=== PATIENT | female | born 1995 | race Caucasian/White ===

== ENCOUNTER → 2020-06-07 | Outpatient (CLI) | payer MEDICAID ==
--- NOTE | 2020-06-07 14:53 | Diagnostic Imaging Report ---
INDICATION: anatomical assessment during normal . TECHNIQUE: Multiple real-time grayscale images were obtained over the gravid uterus. COMPARISON: None. FINDINGS: There is presence of a single viable intrauterine . Normal amount of amniotic fluid. Placenta is posterior and somewhat low lying but without previa. The placenta to the os is approximately 2.36 cm. Cervical length at 3.1 cm. Visualized anatomical structures including kidneys, bladder, stomach, intracranial structures, four-chamber heart, three-vessel cord, and cord insertion site as well as spine are unremarkable as visualized. Maternal adnexa is not visualized. Biometrical measurements are as follows: Biparietal 4.64 cm, age 20 weeks 1 days. Head circumference 18.08 cm, age 20 weeks 4 days. Abdominal circumference 14.51 cm, age 19 weeks 6 days. Femur length 3.25 cm, age 20 weeks 1 days. Sonographic estimate age: 20 weeks 2 days. Sonographic estimated date of delivery: 10/23/2020. Estimated Weight: 327 gm (+/- 48 gm). LMP percentile: 25%. heart rate: 144 beats per minute. number: 1 of 1. IMPRESSION: 1. Single viable intrauterine with a sonographic estimated age at 20 weeks 2 days for an estimated date of delivery of October 23, 2020. No abnormality is suggested at this time. Dictated by: Dictated on workstation # [id number]
== END ==
LOC: RAD 11:40
PROVIDERS: ATTEND Obstetrics & Gynecology
DX: Z34.92 Encounter for supervision of normal pregnancy, unspecified, second trimester (principal); Z3A.20 20 weeks gestation of pregnancy
CPT/HCPCS: 76805

== ENCOUNTER 2020-10-15 11:10 | Inpatient (IN) | payer MEDICAID ==
[2020-10-15] VITALS (57 sets, daily range): BP systolic 99–162; BP diastolic 56–104
[~2020-10-15] VITALS: Ht 170.2 cm; Wt 73.8 kg
[2020-10-15] MEDS ORDERED: OXYTOCIN PRE-MIX DRIP 500 ML IV ONE (11:56)
[2020-10-15] MEDS ORDERED: D5 LR IV SOLUTION 1,000 ML IV ONE (11:56)
[2020-10-15] MEDS ORDERED: AMPICILLIN FOR IV USE 2,000 MG in WATER (STERILE) FOR INJECTION 14.8 ML IV SCH (12:07)
[2020-10-15] MEDS ORDERED: OXYTOCIN PRE-MIX DRIP 500 ML IV SCH (12:15)
[2020-10-15] MEDS: D5 LR IV SOLUTION 1,000 ML IV SCH ×2 (12:20→20:59)
--- NOTE | 2020-10-15 12:41 | History & Physical-OB ---
OB - Chief Complaint & HPI Date/Time Date of Admission: Date of Admission: Oct 15, 2020 at 11:10 Date seen by a Provider: Oct 15, 2020 Time Seen by a Provider: 10:30 Chief Complaint/History OB-Reason for Admission/Chief: Onset of Labor Hx : 1 Hx Para: 0 Expected Date of Delivery: Oct 22, 2020 Gestational Age in Weeks: 39 Gestational Age in Days: 0 Admission Nurse Assessment Rev: Yes History of Labs O neg Antibody neg RI RPR NR HBsAg NR HIV NR GC neg GBS pos Allergies and Home Medications Allergies Coded Allergies: Sulfa (Sulfonamide Antibiotics) (Verified Allergy, Intermediate, RASH, 10/15/20) Patient Home Medication List Home Medication List Reviewed: Yes OB - History Hx of Present Care: Yes Ultrasounds: Normal mid trimester US Obstetrical Complications: None Medical Complications: None Patient Past Medical History n/a OB - Admission Exam Physical Exam HEENT: NCAT Heart: Rhythm Normal Lungs: Clear Abdomen: Gravid Extremities: Normal Reflexes: Normal Cervical Dilatation: 2cm Effacement: 75% Station: -1 Membranes: Intact Heart Rate: 130's Accelerations: Accelerations Present Decelerations: No Decelerations Short Term Variability: Present Fpc Variability: Average (6-25) Contractions on Admission: 6-10 Minutes Apart Intensity: Firm Labs Laboratory Tests Test 10/15/20 12:00 10/15/20 12:11 Range/Units OB - Assessment/Plan/Diagnosis Assessment Assessment: active labor Admission Dx 25 yo @ 39 weeks Active labor GBS pos Admission Status: Inpatient Order (span 2 midnights) Reason for Inpatient Admission: 39 week active labor at term Plan Plan: Expectant Management Other Plan Ampicillin started, will follow with AROM once timing of dose completed. MAYUR CONTEH DO Oct 15, 2020 12:41
[2020-10-15 12:42] LABS: BASOPHILS % (AUTO) 0 % (0-10); EOSINOPHILS # (AUTO) 0.1 10^3/uL (0.0-0.3); EOSINOPHILS % (AUTO) 0 % (0-10); HEMATOCRIT 37 % (35-52); HEMOGLOBIN 12.3 g/dL (11.5-16.0); LYMPHOCYTES # (AUTO) 1.6 10^3/uL (1.0-4.0); LYMPHOCYTES % (AUTO) 12 % (12-44); MEAN CORPUSCULAR HEMOGLOBIN 30 pg (25-34); MEAN CORPUSCULAR HGB CONC 34 g/dL (32-36); MEAN CORPUSCULAR VOLUME 90 fL (80-99); MEAN PLATELET VOLUME 12.1 fL (9.0-12.2); MONOCYTES # (AUTO) 0.6 10^3/uL (0.0-1.0); MONOCYTES % (AUTO) 4 % (0-12); NEUTROPHILS # (AUTO) 11.4 10^3/uL (1.8-7.8); NEUTROPHILS % (AUTO) 82 % (42-75); PLATELET COUNT 210 10^3/uL (130-400); WHITE BLOOD COUNT 13.9 10^3/uL (4.3-11.0)
[2020-10-15 12:42] LABS: BILIRUBIN,URINE NEGATIVE (NEGATIVE); CLARITY,URINE CLEAR; COLOR,URINE YELLOW; GLUCOSE, URINE (UA) NEGATIVE (NEGATIVE); KETONES,URINE NEGATIVE (NEGATIVE); LEUKOCYTE ESTERASE ,URINE 2+ (NEGATIVE); NITRITE,URINE NEGATIVE (NEGATIVE); PROTEIN,URINE NEGATIVE (NEGATIVE)
[2020-10-15 12:55] LABS: BACTERIA,URINE FEW /HPF; RBC,URINE 0-2 /HPF; SQUAMOUS EPITHELIAL CELL,UR 25-50 /HPF; WBC,URINE 50-100 /HPF
[2020-10-15] MEDS ORDERED: fentaNYL 2 mcg/ml BUPIVA 0.125 100 ML ONE (13:02)
[2020-10-15] MEDS ORDERED: BUPIVACAINE 0.25% 30 ML (SENSORCAINE) VIAL ONE (13:27)
[2020-10-15] MEDS ORDERED: fentaNYL INJECTION 100 MCG/2 ML AMP ONE ×2 (13:28→17:03)
[2020-10-15] MEDS: EPIDURAL (fentaNYL 2 MCG/ML BUPIVA 0.125%)100 ML BAG EPI PRN ×2 (13:30→19:57)
[2020-10-15] MEDS ORDERED: NALOXONE 0.4 MG/ML 1 ML (NARCAN) VIAL IV PRN ×2 (14:00)
[2020-10-15] MEDS ORDERED: CATHETER FLUSH 10 ML SYR IV SCH (14:00)
[2020-10-15] MEDS ORDERED: METOCLOPRAMIDE INJ 10 MG/2 ML (REGLAN) IV PRN (14:00)
[2020-10-15] MEDS ORDERED: ONDANSETRON 4 MG/2 ML (SDV) Z0FRAN IV PRN (14:00)
[2020-10-15] MEDS ORDERED: LACTATED RINGERS 1,000 ML IV SCH (14:00)
[2020-10-15] MEDS ORDERED: diphenhydrAMINE 50 MG/ML INJ (BENADRYL) IV PRN (14:00)
[2020-10-15] MEDS ORDERED: LIDOCAINE PF 2% 5 ML (XYLOCAINE) VIAL ONE (16:05)
[2020-10-15] MEDS: AMPICILLIN FOR IV USE 1,000 MG in WATER (STERILE) FOR INJECTION 7.4 ML IV SCH ×2 (16:28→20:18)
[2020-10-16] VITALS (42 sets, daily range): BP systolic 103–137; BP diastolic 55–95
[2020-10-16] MEDS: AMPICILLIN FOR IV USE 1,000 MG in WATER (STERILE) FOR INJECTION 7.4 ML IV SCH ×2 (00:21→04:31)
[2020-10-16] MEDS: EPIDURAL (fentaNYL 2 MCG/ML BUPIVA 0.125%)100 ML BAG EPI PRN (02:41)
[2020-10-16] MEDS ORDERED: LIDOCAINE/EPI 2% 1:200,00 (XYLOCAINE) 10 ML VIAL ONE (05:35)
--- NOTE | 2020-10-16 07:07 | OB Labor & Delivery Record ---
L&D History Date of Service Date of Service: Oct 16, 2020 History Expected Date of Delivery: Oct 22, 2020 Gestational Age in Weeks: 39 Hx : 1 Hx Para: 0 Complications Events: Routine care Operative Indications (Cesarea: N/A-Vaginal Delivery Intrapartal Events: None L&D Stage1 Stage One Onset of Labor - Date: Oct 16, 2020 Monitors and Tracing Monitor Mode: External Heart Rate: 125 Monitor Accelerations: Uniform Monitor Decelerations: None Station: 0 Prison Variability: Average (6-10) Short Term Variability: Present Presentation: Vertex Vital Signs VS - Last 72 Hours, by Label 10/15/20 10/15/20 10/15/20 10/15/20 11:30 13:00 13:15 13:20 Temp 37.5 Pulse 92 93 106 92 Resp 18 18 18 18 B/P (MAP) 130/87 (101) 131/83 (99) 135/85 (102) 129/85 (100) Pulse Ox 97 100 99 O2 Delivery Room Air Room Air Room Air Room Air 10/15/20 10/15/20 10/15/20 10/15/20 13:25 13:30 13:35 13:40 Pulse 92 77 92 96 Resp 18 18 18 18 B/P (MAP) 156/104 (121) 134/77 (96) 127/75 (92) 129/80 (96) Pulse Ox 99 98 99 99 O2 Delivery Room Air Room Air Room Air Room Air 10/15/20 10/15/20 10/15/20 10/15/20 13:45 13:50 14:00 14:15 Pulse 89 83 88 84 Resp 18 18 18 18 B/P (MAP) 127/77 (94) 126/93 (104) 123/84 (97) 119/81 (94) Pulse Ox 98 96 98 90 O2 Delivery Room Air Room Air Room Air Room Air 10/15/20 10/15/20 10/15/20 10/15/20 14:30 14:45 15:00 15:15 Pulse 90 90 81 89 Resp 18 18 18 18 B/P (MAP) 116/74 (88) 116/74 (88) 128/85 (99) Pulse Ox 97 97 100 96 O2 Delivery Room Air Room Air Room Air Room Air 3/2/21 10/15/20 10/15/20 10/15/20 15:30 15:45 16:00 16:15 Pulse 76 81 92 81 Resp 18 18 18 18 B/P (MAP) 124/80 (95) 119/80 (93) 126/86 (99) 131/81 (98) Pulse Ox 98 98 99 99 O2 Delivery Room Air Room Air Room Air Room Air 10/15/20 10/15/20 10/15/20 10/15/20 16:30 16:45 17:00 17:05 Temp 37.8 Pulse 83 88 92 118 Resp 18 18 18 18 B/P (MAP) 130/84 (99) 133/84 (100) 154/92 (112) 162/92 (115) Pulse Ox 98 89 99 99 O2 Delivery Room Air Room Air Room Air Room Air 10/15/20 10/15/20 10/15/20 10/15/20 17:10 17:15 17:20 17:25 Pulse 114 120 120 90 Resp 18 18 18 18 B/P (MAP) 145/89 (107) 144/93 (110) 144/93 (110) 128/90 (103) Pulse Ox 99 98 98 100 O2 Delivery Room Air Room Air Room Air Room Air 10/15/20 10/15/20 10/15/20 10/15/20 17:30 17:35 17:40 17:45 Pulse 107 96 99 92 Resp 18 18 18 18 B/P (MAP) 120/81 (94) 126/77 (93) 135/82 (99) 136/76 (96) Pulse Ox 98 100 100 99 O2 Delivery Room Air Room Air Room Air Room Air 10/15/20 10/15/20 10/15/20 10/15/20 17:50 17:55 18:00 18:11 Temp 37.5 Pulse 86 82 96 92 Resp 18 18 18 18 B/P (MAP) 125/77 (93) 127/78 (94) Pulse Ox 99 100 92 97 O2 Delivery Room Air Room Air Room Air Room Air 10/15/20 10/15/20 10/15/20 10/15/20 18:15 18:30 18:45 19:00 Pulse 87 83 97 102 Resp 18 18 18 18 B/P (MAP) 136/85 (102) 127/73 (91) 135/82 (99) 137/72 (93) Pulse Ox 99 100 98 100 O2 Delivery Room Air Room Air Room Air Room Air 10/15/20 10/15/20 10/15/20 10/15/20 19:15 19:30 19:45 20:00 Temp 37.3 37.5 Pulse 88 87 94 86 Resp 18 18 18 18 B/P (MAP) 131/79 (96) 138/65 (89) 119/67 (84) 128/80 (96) Pulse Ox 99 99 98 98 O2 Delivery Room Air Room Air Room Air Room Air 10/15/20 10/15/20 10/15/20 10/15/20 20:15 20:30 20:45 21:00 Pulse 77 83 76 96 Resp 18 18 18 18 B/P (MAP) 117/72 (87) 111/69 (83) 119/67 (84) 100/56 (71) Pulse Ox 98 O2 Delivery Room Air Room Air Room Air Room Air 10/15/20 10/15/20 10/15/20 10/15/20 21:15 21:30 21:45 22:00 Temp 37.3 Pulse 86 86 91 93 Resp 18 18 18 18 B/P (MAP) 100/56 (71) 101/58 (72) 99/57 (71) 121/76 (91) O2 Delivery Room Air Room Air Room Air Room Air 10/15/20 10/15/20 10/15/20 10/15/20 22:15 22:30 22:45 23:00 Pulse 88 97 78 93 Resp 18 18 18 18 B/P (MAP) 113/70 (84) 112/69 (83) 113/65 (81) 119/61 (80) O2 Delivery Room Air Room Air Room Air Room Air 10/15/20 10/15/20 10/15/20 10/16/20 23:15 23:30 23:45 00:00 Temp 37.3 Pulse 78 77 94 80 Resp 18 18 18 18 B/P (MAP) 111/63 (79) 110/63 (79) 112/67 (82) 117/75 (89) O2 Delivery Room Air Room Air Room Air Room Air 10/16/20 10/16/20 10/16/20 10/16/20 00:15 00:30 00:45 01:00 Pulse 82 77 76 75 Resp 18 18 18 18 B/P (MAP) 121/66 (84) 119/71 (87) 113/68 (83) 114/66 (82) O2 Delivery Room Air Room Air Room Air Room Air 10/16/20 10/16/20 10/16/20 10/16/20 01:15 01:30 01:45 02:00 Pulse 72 81 78 72 Resp 18 18 18 18 B/P (MAP) 116/66 (83) 117/70 (86) 119/62 (81) 109/58 (75) O2 Delivery Room Air Room Air Room Air Room Air 10/16/20 10/16/20 10/16/20 10/16/20 02:15 02:30 02:45 03:00 Pulse 76 81 74 81 Resp 18 18 18 18 B/P (MAP) 105/55 (72) 106/58 (74) 110/58 (75) 108/57 (74) O2 Delivery Room Air Room Air Room Air Room Air 10/16/20 10/16/20 10/16/20 10/16/20 03:15 03:30 03:45 04:00 Pulse 83 77 70 80 Resp 18 18 18 18 B/P (MAP) 114/64 (81) 111/66 (81) 110/62 (78) 113/64 (80) O2 Delivery Room Air Room Air Room Air Room Air 10/16/20 10/16/20 10/16/20 10/16/20 04:15 04:30 04:45 05:00 Temp 36.4 Pulse 78 74 77 78 Resp 18 18 18 18 B/P (MAP) 109/66 (80) 110/62 (78) 115/72 (86) 118/76 (90) O2 Delivery Room Air Room Air Room Air Room Air 10/16/20 10/16/20 05:15 05:30 Pulse 78 100 Resp 18 18 B/P (MAP) 119/76 (90) 123/85 (98) O2 Delivery Room Air Room Air Rupture of Membranes Spontaneous Ruture of Membrane: No Amniotic Membrane Rupture Time: 171 Amniotic Membrane Fluid Desc.: Clear Vaginal Bleeding Description: Normal Show Induction/Anesthesia Epidural Cath Placement - Time: 170 Progress/Notes Patient admitted in early active labor, after GBS prophylaxis given, AROM performed and epidural placed. She progressed to complete and 0 station with pitocin augmentation. L&D Stage2 Stage Two Stage II Date: Oct 16, 2020 Monitors and Tracing Monitor Mode: External Heart Rate: 125 Position: Right Occiput Anterior Presentation: Vertex Cord Descript/Complications Cord Vessel Description: 3 Vessels Delivery Type Infant Delivery Method: Spontaneous Vaginal Anterior Shoulder: Left Episiotomy/Perineal Laceration Laceraction(s)/Extensions: Yes Episiotomy Description: Right Mediolateral Degree (describe repair) RML repaired using 3-0 and 2-0 vicryl suture in usual fashion. Condition of Delivery Notes Live female weight 7 lbs 8 oz, APGARS pending Condition of Infant Condition of Infant: Living Exam: No Observed Abnormalities Resuscitation Resuscitation: Oxygen Blowby L&D Stage3 Pictocin Pitocin Administration mu/min: 18 Pitocin ml/hr: 18 Pitocin Administration Comment: pitocin increased wide open after delivery of placenta Placenta Delivery Placenta Delivery: Spontaneous Delivery Summary Summary Estimated blood loss (mL): 350 Attending at delivery: Mayur Conteh DO Condition of Delivery Examined: Cervix Examined, Uterus Explored Post Hemorrhage: No Condition of Mother stable Condition of (s) stable MAYUR CONTEH DO Oct 16, 2020 07:07
--- NOTE | 2020-10-16 07:10 | Discharge Inst-Women's Service ---
Discharge Inst-Women's Serv Depart Medication/Instructions New, Converted or Re-Newed RX: RX on Chart Final Diagnosis PPD 1 NVD Problems Reviewed?: Yes Consults/Follow Up Additional Follow Up: Yes Orders/Referrals Dr. Conteh in 6 weeks Activity Activity: Activity as Tolerated Driving Instructions: No Driving for 1 Week NO SMOKING: NO SMOKING Nothing Inside Vagina: No Douching, No [place], No Tampons Diet Discharge Diet: No Restrictions Symptoms to Report to : Bleeding Excessive, Pain Increased, Fever Over 101 Degrees F, Vaginal Bleeding Increase, Questions/Concerns For Any Problems or Questions: Contact Your Physician MAYUR CONTEH DO Oct 16, 2020 07:10
[2020-10-16] MEDS ORDERED: IBUP-844 PO (07:12)
[2020-10-16] MEDS ORDERED: ACHD5005 PO (07:12)
[2020-10-16] MEDS ORDERED: DIBU30OI TOP (07:12)
[2020-10-16] MEDS ORDERED: PNV1TABL67 PO (07:12)
[2020-10-16] MEDS ORDERED: DCS100C PO (07:12)
[2020-10-16] MEDS ORDERED: FERR325T18 PO (07:12)
[2020-10-16] MEDS ORDERED: BENZ78AE5 TP (07:12)
[2020-10-16] MEDS ORDERED: OXYTOCIN PRE-MIX DRIP 500 ML IV SCH (07:15)
[2020-10-16] MEDS ORDERED: TETANUS,DIPTH,PERTUSS P/F (BOOSTRIX) 0.5 ML VIAL IM ONE (07:15)
[2020-10-16] MEDS ORDERED: HYDROcodone/APAP 5 MG/325 MG (LORTAB) TAB PO PRN (07:15)
[2020-10-16] MEDS ORDERED: DIBUCAINE (NUPERCAINAL) 1% OINT 30 GM TOP PRN (07:15)
[2020-10-16] MEDS ORDERED: MEASLES,MUMPS,RUBELLA 1 EA INJ SQ ONE (07:15)
[2020-10-16] MEDS: IBUPROFEN 600 MG (MOTRIN) TAB PO SCH ×3 (10:13→23:44)
[2020-10-16] MEDS: BENZOCAINE/MENTHOL (DERMOPLAST) 60 ML CAN TP PRN (10:14)
[2020-10-16] MEDS: WITCH HAZEL(TUCKS) 40 EA JAR TOP PRN (10:14)
[2020-10-16] MEDS ORDERED: CATHETER FLUSH 10 ML SYR IV SCH (14:00)
[2020-10-16] MEDS: FERROUS SULF 325 MG (IRON) TAB PO SCH (17:36)
[2020-10-16] MEDS: DOCUSATE SODIUM 100 MG (COLACE) CAP PO SCH ×2 (17:36→19:37)
[2020-10-17 05:34] VITALS: BP 120/69
[2020-10-17] MEDS: IBUPROFEN 600 MG (MOTRIN) TAB PO SCH ×2 (05:34→12:07)
[2020-10-17 06:52] LABS: BASOPHILS # (AUTO) 0.1 10^3/uL (0.0-0.1); BASOPHILS % (AUTO) 0 % (0-10); EOSINOPHILS # (AUTO) 0.2 10^3/uL (0.0-0.3); EOSINOPHILS % (AUTO) 1 % (0-10); HEMATOCRIT 33 % (35-52); HEMOGLOBIN 11.2 g/dL (11.5-16.0); LYMPHOCYTES # (AUTO) 2.8 10^3/uL (1.0-4.0); LYMPHOCYTES % (AUTO) 15 % (12-44); MEAN CORPUSCULAR HEMOGLOBIN 31 pg (25-34); MEAN CORPUSCULAR HGB CONC 34 g/dL (32-36); MEAN CORPUSCULAR VOLUME 90 fL (80-99); MEAN PLATELET VOLUME 12.1 fL (9.0-12.2); MONOCYTES # (AUTO) 0.8 10^3/uL (0.0-1.0); MONOCYTES % (AUTO) 4 % (0-12); NEUTROPHILS # (AUTO) 14.3 10^3/uL (1.8-7.8); NEUTROPHILS % (AUTO) 78 % (42-75); PLATELET COUNT 203 10^3/uL (130-400); WHITE BLOOD COUNT 18.3 10^3/uL (4.3-11.0)
[2020-10-17] MEDS ORDERED: PRENATAL VITAMIN 1 EA TAB PO SCH (07:00)
--- NOTE | 2020-10-17 07:25 | Postpartum Progress Note ---
Note Note Day # 1 Subjective: Patient is without complaints. Ambulating, voiding. Tolerating a regular diet without nausea or vomiting. Normal lochia. Pain is well controlled with oral pain medications. Objective: Physical Exam: General - Alert and oriented, no apparent distress Abdomen - Soft, appropriately tender to palpation, non-distended, fundus firm at umbilicus Extremities - no edema, negative Max's bilaterally Assessment: PPD 1 NVD Acute blood loss anemia Plan: Routine care. Encourage breast feeding. Encourage ambulation. Ferrous sulfate supplementation. Plan for discharge today Vitals - Labs Vital Signs - I&O Vital Signs Date Time Temp Pulse Resp B/P (MAP) Pulse Ox O2 Delivery O2 Flow Rate FiO2 10/17/20 05:34 36.3 98 18 120/69 (86) 100 10/16/20 23:52 36.2 85 18 110/71 (84) 97 10/16/20 19:30 36.3 89 18 126/91 (103) 99 Room Air 10/16/20 17:00 36.6 88 18 119/78 (92) 97 Room Air 10/16/20 10:00 115 18 130/79 (96) Room Air 10/16/20 09:45 111 18 118/95 (103) Room Air 10/16/20 09:30 100 18 117/65 (82) Room Air 10/16/20 09:15 102 18 113/72 (86) Room Air 10/16/20 09:00 114 18 126/64 (84) Room Air 10/16/20 08:45 112 18 119/56 (77) Room Air 10/16/20 08:30 111 18 130/59 (82) Room Air 10/16/20 08:15 18 103/80 (88) Room Air 10/16/20 08:00 100 18 117/73 (88) Room Air 10/16/20 07:45 37.1 108 18 113/72 (86) Room Air 10/16/20 07:30 113 18 109/63 (78) Room Air Labs Laboratory Tests 10/17/20 06:17: White Blood Count 18.3H, Red Blood Count 3.66L, Hemoglobin 11.2L, Hematocrit 33L , Mean Corpuscular Volume 90, Mean Corpuscular Hemoglobin 31, Mean Corpuscular Hemoglobin Concent 34, Red Cell Distribution Width 13.5, Platelet Count 203, Mean Platelet Volume 12.1, Immature Granulocyte % (Auto) 1, Neutrophils (%) (Auto) 78H, Lymphocytes (%) (Auto) 15, Monocytes (%) (Auto) 4, Eosinophils (%) (Auto) 1, Basophils (%) (Auto) 0, Neutrophils # (Auto) 14.3H, Lymphocytes # (Auto) 2.8, Monocytes # (Auto) 0.8, Eosinophils # (Auto) 0.2, Basophils # (Auto) 0.1, Immature Granulocyte # (Auto) 0.1 Microbiology 10/15/20 Urine Culture - Final, Complete See Comments MAYUR CONTEH DO Oct 17, 2020 07:25
[2020-10-17] MEDS: FERROUS SULF 325 MG (IRON) TAB PO SCH (09:53)
[2020-10-17] MEDS: DOCUSATE SODIUM 100 MG (COLACE) CAP PO SCH (09:53)
[2020-10-17 09:55] VITALS: BP 129/87
[2020-10-17] MEDS: BENZOCAINE/MENTHOL (DERMOPLAST) 60 ML CAN TP PRN (10:01)
[2020-10-17] MEDS: WITCH HAZEL(TUCKS) 40 EA JAR TOP PRN (10:01)
== END 2020-10-17 12:55 | disposition home or self-care (01) | DRG 806 ==
LOC: LDRP 11:10
PROVIDERS: ADMIT Obstetrics & Gynecology; ATTEND Obstetrics & Gynecology
PROC: 10E0XZZ Delivery of Products of Conception, External Approach (ICD-10-PCS; principal; 2020-10-15)
PROC: 10907ZC Drainage of Amniotic Fluid, Therapeutic from Products of Conception, Via Natural or Artificial Opening (ICD-10-PCS; 2020-10-15)
PROC: 0W8NXZZ Division of Female Perineum, External Approach (ICD-10-PCS; 2020-10-15)
DX: O99.824 Streptococcus B carrier state complicating childbirth (principal); D62 Acute posthemorrhagic anemia; Z37.0 Single live birth; Z3A.39 39 weeks gestation of pregnancy; O90.81 Anemia of the puerperium; Z20.822 Contact with and (suspected) exposure to COVID-19
CPT/HCPCS: 36415; 81000; 83033; 85025; 86850; 86900; 86901; 87088; 87635

== ENCOUNTER 2021-02-25 05:35 | Outpatient (CLI) | payer MEDICAID ==
[~2021-02-25] VITALS: Ht 170.2 cm; Wt 65.0 kg
[~2021-02-25 05:35] MED LIST: ACHD5005 PO; BENZ78AE5 TP; DCS100C PO; DIBU30OI TOP; FERR325T18 PO; IBUP-844 PO; PNV1TABL67 PO
[2021-02-25] MEDS ORDERED: NORE1TAB95 PO (13:11)
== END 2021-02-25 13:21 | disposition home or self-care (01) ==
LOC: PREOP 05:35
PROVIDERS: ATTEND Obstetrics & Gynecology
DX: Z01.818 Encounter for other preprocedural examination (principal)

== ENCOUNTER 2021-03-03 10:03 | Day surgery (SDC) | payer MEDICAID ==
[2021-03-03] VITALS (11 sets, daily range): BP systolic 94–128; BP diastolic 60–85
[~2021-03-03] VITALS: Ht 170.2 cm; Wt 65.0 kg
[~2021-03-03 10:03] MED LIST changes: +NORE1TAB95 PO
[2021-03-03] MEDS ORDERED: LACTATED RINGERS 1,000 ML IV PRN (10:15)
[2021-03-03] MEDS ORDERED: BUPIVACAINE 0.25% 30 ML (SENSORCAINE) VIAL ONE (10:28)
[2021-03-03] MEDS ORDERED: KETOROLAC 30 MG/ML VIAL ONE (10:45)
[2021-03-03] MEDS ORDERED: proPOfol 200 MG/20 ML (DIPRIVAN) VIAL IV ONE (10:45)
[2021-03-03] MEDS ORDERED: MIDAZOLAM 2 MG/2 ML (VERSED) VIAL ONE (10:45)
[2021-03-03] MEDS ORDERED: fentaNYL INJ 100 MCG/2 ML AMP ONE (10:45)
[2021-03-03] MEDS ORDERED: LIDOCAINE PF 2% 5 ML (XYLOCAINE) VIAL ONE (10:45)
[2021-03-03] MEDS ORDERED: ONDANSETRON 4 MG/2 ML (SDV) Z0FRAN ONE (10:45)
[2021-03-03 10:46] LABS: BASOPHILS # (AUTO) 0.1 10^3/uL (0.0-0.1); BASOPHILS % (AUTO) 1 % (0-10); EOSINOPHILS # (AUTO) 0.2 10^3/uL (0.0-0.3); EOSINOPHILS % (AUTO) 2 % (0-10); HEMATOCRIT 41 % (35-52); HEMOGLOBIN 13.7 g/dL (11.5-16.0); LYMPHOCYTES # (AUTO) 1.5 10^3/uL (1.0-4.0); LYMPHOCYTES % (AUTO) 17 % (12-44); MEAN CORPUSCULAR HEMOGLOBIN 30 pg (25-34); MEAN CORPUSCULAR HGB CONC 34 g/dL (32-36); MEAN CORPUSCULAR VOLUME 89 fL (80-99); MEAN PLATELET VOLUME 10.8 fL (9.0-12.2); MONOCYTES # (AUTO) 0.4 10^3/uL (0.0-1.0); MONOCYTES % (AUTO) 5 % (0-12); NEUTROPHILS # (AUTO) 6.8 10^3/uL (1.8-7.8); NEUTROPHILS % (AUTO) 75 % (42-75); PLATELET COUNT 295 10^3/uL (130-400)
--- NOTE | 2021-03-03 11:41 | Progress Note-Pre Operative ---
Pre-Operative Progress Note H&P Reviewed The H&P was reviewed, patient examined and no changes noted. Date Seen by Provider: Mar 03, 2021 Time Seen by Provider: 11:00 Date H&P Reviewed: Mar 03, 2021 Time H&P Reviewed: 11:15 Pre-Operative Diagnosis: LIGIA 2 positive ectocervical margins MAYUR CONTEH DO Mar 03, 2021 11:41
[2021-03-03] MEDS ORDERED: IBUP-1773 PO (11:43)
[2021-03-03] MEDS ORDERED: ACHD5005 PO (11:43)
--- NOTE | 2021-03-03 11:43 | Discharge Inst-Women's Service ---
Discharge Inst-Women's Serv Depart Medication/Instructions New, Converted or Re-Newed RX: Transmitted to Pharmacy Problems Reviewed?: Yes Consults/Follow Up Additional Follow Up: Yes Orders/Referrals [address] Conteh Activity Activity: Activity as Tolerated Driving Instructions: You May Drive NO SMOKING: NO SMOKING Nothing Inside Vagina: No Douching, No [place], No Tampons Diet Discharge Diet: No Restrictions Symptoms to Report to : Bleeding Excessive, Pain Increased, Fever Over 101 Degrees F, Vaginal Bleeding Increase, Questions/Concerns For Any Problems or Questions: Contact Your Physician MAYUR CONTEH DO Mar 03, 2021 11:43
[2021-03-03] MEDS ORDERED: HYDROcodone/APAP 5 MG/325 MG (LORTAB) TAB PO PRN (11:45)
[2021-03-03] MEDS ORDERED: ONDANSETRON 4 MG/2 ML (SDV) Z0FRAN IVP PRN (11:45)
[2021-03-03] MEDS ORDERED: D5 LR IV SOLUTION 1,000 ML IV SCH (11:45)
[2021-03-03] MEDS ORDERED: KETOROLAC 30 MG/ML VIAL IVP ONE (11:45)
[2021-03-03] MEDS ORDERED: SEVOFLURANE (ULTANE) 15 ML INHAL SOLN ONE (12:05)
--- NOTE | 2021-03-03 12:18 | Anesthesia-General Post-Op ---
General Patient Condition Mental Status/LOC: Same as Preop Cardiovascular: Satisfactory Nausea/Vomiting: Absent Respiratory: Satisfactory Pain: Controlled Complications: Absent Post Op Complications Complications None Follow Up Care/Instructions Patient Instructions None needed. Anesthesia/Patient Condition Patient Condition Patient is doing well, no complaints, stable vital signs, no apparent adverse anesthesia problems. No complications reported per nursing. DELFIN CABRERA CRNA Mar 03, 2021 12:18
[2021-03-03] MEDS ORDERED: fentaNYL INJ 100 MCG/2 ML AMP IVP ONE (12:30)
[2021-03-03] MEDS ORDERED: morphine INJ 10 MG/ML 1ML (SYR OR VIAL) IVP ONE (12:30)
--- NOTE | 2021-03-03 19:06 | OPERATIVE REPORT ---
DATE OF SERVICE: PREOPERATIVE DIAGNOSES: A 25-year-old female with LIGIA 2 extending to the ectocervical margin on LEEP and conization. POSTOPERATIVE DIAGNOSES: A 25-year-old female with LIGIA 2 extending to the ectocervical margin on LEEP and conization. ROCEDURE PERFORMED: Cold knife conization. SURGEON: Mao Patel DO ANESTHESIA: LMA general. ESTIMATED BLOOD LOSS: 50 mL. URINE OUTPUT: 20 mL clear, drained at the start of the procedure. FLUIDS: 800 mL lactated Ringer's solution. FINDINGS: Cervix appears healing well from previous LEEP. Otherwise, normal-appearing external female genitalia. SPECIMEN SENT: Cold knife conization of the cervix. INDICATIONS FOR PROCEDURE: This 25-year-old female is a patient, who had undergone conization in the office using loop excisional electrocautery. 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 Therefore, I discussed with the patient repeating conization; however, doing this free hand and using a cold knife conization procedure. Risks of the procedure were discussed with the patient in detail and after all of her questions were answered, she was agreeable to proceed. Consent was obtained in the preoperative area and the patient was taken to the operating room. OPERATIVE REPORT IN DETAIL: Once in the operating room, anesthesia was found to be adequate. She was placed in the dorsal lithotomy position, was then prepped and draped in a normal sterile fashion. A timeout was performed. A weighted speculum was inserted into the patient's vagina. Right angle retractor was used to visualize the cervix, which was grasped at 12 o'clock position using a long Allis clamp. I then performed a paracervical block at 3 and 9 o'clock positions on the cervix. Care was taken to aspirate for injecting 5 mL of 0.25% Marcaine injected into each site after which two ligating sutures were placed at the 3 and 9 o'clock positions on the cervix using 0 Vicryl suture to control bleeding during the procedure. Once both these are in place, I then stained the cervix using Lugol's solution. There are some small areas of nonstaining around the transformation zone. I then used a freehand scalpel 11 blade to excise around these lesions laterally. Care was taken to take more ectocervix and superficial cervix than deep or endocervical tissue due to the pathology of the margins. After this conization was taken, the vascular bed is cauterized using ball cautery and excellent hemostasis was noted. I then apply Monsel's astringent solution to the vascular cauterized bed to ensure excellent postoperative hemostasis. I then removed all the instruments from the patient's vagina. The patient tolerated the procedure well and sent to the recovery in stable condition. Lap and sponge counts were correct at the end of the procedure. Instrument count was correct as well. Job ID: [id number] DocumentID: [id number] Dictated Date: 03/03/2021 12:31:14 Financial Administration Officer Date: 03/03/2021 19:06:00 Dictated By: DO SAMANTHA ROWLAND
== END 2021-03-03 14:15 | disposition home or self-care (01) ==
LOC: SDC 10:03
PROVIDERS: ATTEND Obstetrics & Gynecology
DX: N87.1 Moderate cervical dysplasia (principal); Z98.890 Other specified postprocedural states; Z79.899 Other long term (current) drug therapy
CPT/HCPCS: 36415; 84703; 85025; 86850; 86900; 86901; 87081; 88307